=== PATIENT | female | born 1965 | race African-American/Black ===

== ENCOUNTER 2017-02-11 17:36 | Emergency (ER) | payer OTHER ==
[~2017-02-11] VITALS: Ht 172.7 cm; Wt 145.1 kg
[2017-02-11] MEDS ORDERED: LOSARTAN POTASS25 MG ORAL ×2 (17:50→18:05)
[2017-02-11] MEDS ORDERED: PREDNISONE20 MG ORAL (17:50)
[2017-02-11] MEDS ORDERED: VENTOLIN HFA18 GM INH (17:50)
[2017-02-11] MEDS ORDERED: DIPHENHYDRAMINE25 M1 ORAL (18:05)
[2017-02-11] MEDS ORDERED: IBUPROFEN600 MG ORAL (18:05)
[2017-02-11] MEDS ORDERED: OMEPRAZOLE20 M2 ORAL (18:05)
[2017-02-11] MEDS ORDERED: OYSCO 500+D TA1 EAC1 PO (18:05)
[2017-02-11] MEDS ORDERED: FERROUS SULFAT325 MG ORAL (18:05)
[2017-02-11] MEDS ORDERED: TRAMADOL HCL50 MG ORAL (18:05)
[2017-02-11] MEDS ORDERED: GABAPENTIN400 MG ORAL (18:05)
[2017-02-11 18:12] VITALS: BP 143/80
--- NOTE | 2017-02-11 18:16 | Emergency Room Report ---
History of Present Illness General Chief Complaint: Upper Respiratory Illness Source: Patient, Significant Other Present Illness HPI 51 yo F hx of HTN, asthma, p/w 6 days of cough/sob. +dry cough, occurs constantly throughout the day but worse at night. +sob/wheezing, states she has been using her albuterol pump every 4 hours with only mild relief. no fever chills chest pain nvd went to [facility] this past friday, was tx with steroids, nebulizers , and DC'ed from the ED. per patient, she was told her XR was normal. pt has been taking 60mg prednisone daily, took today's dose per asthma, no hx of icu admissions/intubation/bipap no hx of PE/DVT. no recent immobilizations/surgeries. no hormonal pills. Allergies: Coded Allergies: AMOXICILLIN (Verified Allergy, Unknown, 02/11/17) Patient History Past Surgical History: none Pertinent Family History: none Last Menstrual Period: Menopausal Nursing Documentation-PMH Hx Hypertension: Yes Hx Asthma: Yes Review of Systems Respiratory: Reports: cough, shortness of breath, wheezing All Other Systems: negative except mentioned in HPI Physical Exam Vital Signs Date Time Temp Pulse Resp B/P Pulse Ox O2 Delivery O2 Flow Rate FiO2 02/11/17 17:42 98.4 99 18 143/80 95 Room Air Sp02 EP Interpretation: normal General Appearance: normal inspection, well appearing, no apparent distress - appears sob however is speaking in complete sentences, alert, GCS 15, non-toxic Head: normocephalic, atraumatic Eyes: bilateral eye EOMI, bilateral eye PERRL, bilateral eye normal inspection ENT: normal ENT inspection, normal pharynx, normal voice, moist mucus membranes Neck: normal inspection, full range of motion, supple, no bony tend Respiratory: normal inspection, no retraction, respiratory distress - mild, speaking full sentences, wheezing, chest symmetrical Cardiovascular #1: normal inspection, regular rate, rhythm, no edema, normal capillary refill Gastrointestinal: normal inspection, non tender, soft, non-distended, no guarding Musculoskeletal: normal inspection, back normal, normal range of motion, non- tender Neurologic: normal inspection, alert, oriented x3, responsive, air transportation provider III-XII nml as tested, motor strength/tone normal, sensory intact, normal gait, speech normal Medical Decision Making Diagnostic Impression: Primary Impression: Atypical pneumonia Additional Impression: Asthma exacerbation ER Course 51 yo F hx of asthma p/w 6 days of sob/cough ddx: asthma exacerbation / URI / pneumonia not c/w PE given other likely clinical scenarios, no risk factors pt currently wheeziing however speaking in complete sentences -combivent x 3 -already took her prednisone 60mg today - CXR to r/o pneumonia ER course patient s/p 3 combivents, lungs now improved/clear with only slight wheezing. she feels much better. CXR showing possible R sided infiltrate. 500mg levaquin given in ED Discharge -pt to fu with PMD within 5 days -DC home with levaquin, nebulizer -instructed to continue to take her prednisone. -strict return prec given, inc sob/chest pain/to come back to ED Chest X-Ray Diagnostic Results Chest X-Ray Diagnostic Results : Chest X-Ray Ordered: Yes # of Views/Limited/Complete: 2 View Indication: Shortness of Breath EP Interpretation: Yes Interpretation: other - R sided infiltrate Impression: Other - R sided infiltrate concerning for R sided pneumonia Interpreting ER Provider: electronically signed by Kaity Hankins MD Last Vital Signs Date Time Temp Pulse Resp B/P Pulse Ox O2 Delivery O2 Flow Rate FiO2 02/11/17 17:42 98.4 99 18 143/80 95 Room Air Status: improved Disposition: HOME, SELF-CARE Condition: Improved Scripts Compressor, For Nebulizer (Ebase Controller) 1 Each Each 1 EACH , #1 Prov: Kaity Hankins M.D. 02/11/17 Albuterol Sulfate (ALBUTEROL SULFATE) 2.5 Mg/0.5 Ml Vial.neb 2.5 MG IH Q4HR Y for Shortness of Breath, #4 VIAL Prov: Kaity Hankins M.D. 02/11/17 Levofloxacin* (LEVAQUIN*) 750 Mg Tablet 750 MG ORAL DAILY for 5 Days, #5 TAB Prov: Kaity Hankins M.D. 02/11/17 Patient Instructions: Asthma, Adult, Community-Acquired Pneumonia, Adult Kaity Hankins M.D. Feb 11, 2017 18:16
[2017-02-11] MEDS: Ipratropium 0.02% Inh Soln 2.5ml UD HHN SCH ×2 (18:36→19:08)
[2017-02-11] MEDS: Albuterol ud Inhalation HHN SCH ×2 (18:37→19:08)
[2017-02-11] MEDS ORDERED: LEVAQUIN750 MG ORAL (19:01)
[2017-02-11] MEDS ORDERED: ALBUTEROL2.5 MG/0.1 IH (19:12)
[2017-02-11] MEDS ORDERED: [UNRECOGNIZED DRUG - OTHER] MC (19:12)
[2017-02-11] MEDS ORDERED: Levofloxacin 500mg tab ORAL ONE (19:15)
[2017-02-11 19:45] VITALS: BP 147/78
--- NOTE | 2017-02-12 10:41 | Diagnostic Imaging Report ---
Indication: COUGH Technique: 2 views of the chest Comparison: none Findings: Heart size is upper limits normal. Lungs and pleural spaces are clear. The bones are grossly unremarkable Impression: No acute process
== END 2017-02-11 19:45 | disposition home or self-care (01) ==
LOC: EMR 18:15
DX: J18.9 Pneumonia, unspecified organism (principal); J45.901 Unspecified asthma with (acute) exacerbation; I10 Essential (primary) hypertension
CPT/HCPCS: 71020; 94640; 94664; 99284

== ENCOUNTER 2018-09-09 10:23 | Emergency (ER) | payer MEDICARE, OTHER ==
[~2018-09-09] VITALS: Ht 172.7 cm; Wt 145.1 kg
[~2018-09-09 10:23] MED LIST: ALBUTEROL2.5 MG/0.1 IH; DIPHENHYDRAMINE25 M1 ORAL; FERROUS SULFAT325 MG ORAL; GABAPENTIN400 MG ORAL; IBUPROFEN600 MG ORAL; LEVAQUIN750 MG ORAL; LOSARTAN POTASS25 MG ORAL; OMEPRAZOLE20 M2 ORAL; OYSCO 500+D TA1 EAC1 PO; PREDNISONE20 MG ORAL; TRAMADOL HCL50 MG ORAL; VENTOLIN HFA18 GM INH; [UNRECOGNIZED DRUG - OTHER] MC
[2018-09-09 10:29] VITALS: BP 123/73
[2018-09-09] MEDS ORDERED: UNOBMED (10:33)
[2018-09-09 10:53] VITALS: BP 120/65
[2018-09-09] MEDS ORDERED: TAMIFLU75 MG ORAL (10:54)
[2018-09-09] MEDS ORDERED: PROMETHAZINE-C118 M1 ORAL (10:54)
[2018-09-09] MEDS ORDERED: IBUPROFEN600 MG ORAL (10:54)
--- NOTE | 2018-09-09 11:09 | Emergency Room Report ---
History of Present Illness General Chief Complaint: Flu Like Symptoms Source: Patient Present Illness HPI 53-year-old female presents ED for evaluation of sore throat and body aches 4 days. States that she is also losing her voice. Notes cough productive with yellowish phlegm. Pain is dull, 8 out of 10, nonradiating. Denies fevers or chills. Denies chest pain or shortness of breath. Notes history of asthma. States coughing is worse at night. No other aggravating relieving factors. Denies any other associated symptoms Allergies: Coded Allergies: AMOXICILLIN (Verified Allergy, Unknown, 09/09/18) Patient History Past Medical History: HTN, asthma Past Surgical History: none Pertinent Family History: none Social History: Denies: smoking, alcohol use, drug use Last Menstrual Period: 07/24/18 Now: No Immunizations: UTD Reviewed Nursing Documentation: PMH: Agreed; PSxH: Agreed Nursing Documentation-PMH Past Medical History: No History, Except For Hx Hypertension: Yes Hx Asthma: Yes Review of Systems All Other Systems: negative except mentioned in HPI Physical Exam Vital Signs Date Time Temp Pulse Resp B/P (MAP) Pulse Ox O2 Delivery O2 Flow Rate FiO2 09/09/18 10:29 98.2 98 16 123/73 95 Room Air Sp02 EP Interpretation: reviewed, normal General Appearance: no apparent distress, alert, GCS 15, non-toxic, obese Head: normocephalic, atraumatic Eyes: bilateral eye normal inspection, bilateral eye PERRL ENT: hearing grossly normal, normal pharynx, no angioedema, normal voice Neck: full range of motion, supple/symm/no masses Respiratory: chest non-tender, lungs clear, normal breath sounds, speaking full sentences Cardiovascular #1: regular rate, rhythm, no edema Cardiovascular #2: 2+ carotid (R), 2+ carotid (L), 2+ radial (R), 2+ radial (L) , 2+ dorsalis pedis (R), 2+ dorsalis pedis (L) Gastrointestinal: normal bowel sounds, non tender, soft, non-distended, no guarding, no rebound Rectal: deferred Genitourinary: normal inspection, no CVA tenderness Musculoskeletal: back normal, gait/station normal, normal range of motion, non- tender Neurologic: alert, oriented x3, responsive, motor strength/tone normal, sensory intact, speech normal Psychiatric: judgement/insight normal, memory normal, mood/affect normal, no suicidal/homicidal ideation Reflexes: 3+ bicep (R), 3+ bicep (L), 3+ tricep (R), 3+ tricep (L), 3+ knee (R) , 3+ knee (L) Skin: normal color, no rash, warm/dry, well hydrated Lymphatic: no adenopathy Medical Decision Making Diagnostic Impression: Primary Impression: Influenza-like symptoms ER Course Hospital Course 53-year-old F presents to ED complaining of bodyaches + cough + sorethroat Differential diagnoses include: URI, pharyngitis, otitis media, influenza Clinical course Patient placed on stretcher. After initial history physical exam reveals an obese female in no acute distress. Bilateral TM unremarkable, no pharyngeal erythema. Lungs clear. No CVA tenderness. No lympahdenopathy Discussed findings with patient. Consideration for influenza. We'll treat with Tamiflu. Safe for discharge close outpatient follow-up. We'll provide referrals Diagnosis - influenza-like symptoms Stable and discharged home with prescriptions for tamiflu, motrin, promethazine/ codeine. drink plenty of fluids. Instructed to followup with PMD. Return to ED if symptoms recur or worsen Last Vital Signs Date Time Temp Pulse Resp B/P (MAP) Pulse Ox O2 Delivery O2 Flow Rate FiO2 09/09/18 10:53 98.0 86 18 120/65 96 Room Air Status: improved Disposition: HOME, SELF-CARE Condition: Stable Scripts Codeine/Promethazine Hcl* (PROMETHAZINE-CODEINE SYRUP*) 118 Ml Syrup 5 ML ORAL Q6H PRN for For Cough, #118 ML 0 Refills Prov: Kanu Crowder MD 09/09/18 Ibuprofen* (MOTRIN*) 600 Mg Tablet 600 MG ORAL Q8H PRN for For Pain, #30 TAB 0 Refills Prov: Kanu Crowder MD 09/09/18 Oseltamivir Phosphate (Tamiflu) 75 Mg Capsule 75 MG ORAL TWICE A DAY for 5 Days, CAP Prov: Kanu Crowder MD 09/09/18 Referrals: [facility] Andrea Pereyra [facility]. [facility] Patient Instructions: Influenza, Adult, [id number] Kanu Crowder MD Sep 09, 2018 11:09
== END 2018-09-09 11:15 | disposition home or self-care (01) ==
LOC: EMR 11:10
DX: J11.1 Influenza due to unidentified influenza virus with other respiratory manifestations (principal); I10 Essential (primary) hypertension; J45.909 Unspecified asthma, uncomplicated; Z88.0 Allergy status to penicillin
CPT/HCPCS: 99282

== ENCOUNTER 2019-06-03 09:54 | Emergency (ER) | payer MEDICARE ==
[~2019-06-03] VITALS: Ht 172.7 cm; Wt 145.1 kg
[~2019-06-03 09:54] MED LIST changes: +PROMETHAZINE-C118 M1 ORAL; +TAMIFLU75 MG ORAL; +UNOBMED
[2019-06-03 10:02] VITALS: BP 121/76
--- NOTE | 2019-06-03 10:12 | NUR ---
ED Nurse Note: PT WALKED IN DUE TO LEFT NECK AND LEFT SHOULDER PAIN AFTER TRIPPING AND FALLING INTO A CURB LAST NIGHT. AAO X4, AMBULATORY, AND PAINFUL TO MOVE AROUND. NO OBVIOUS SIGNS OF DEFORMITY.
[2019-06-03] MEDS ORDERED: HYDROcodone/Acetamin 5/325 tab ORAL ONE (10:15)
[2019-06-03] MEDS ORDERED: Methocarbamol 750mg tab ORAL ONE (10:15)
--- NOTE | 2019-06-03 10:18 | Emergency Room Report ---
History of Present Illness General Chief Complaint: Upper Extremity Injury Source: Patient Present Illness HPI Disclaimer: Please note that this report is being documented using DRAGON technology. This can lead to erroneous entry secondary to incorrect interpretation by the dictating instrument. HPI: 53-year-old [id number] female presents for evaluation of left shoulder and arm pain after a fall. Yesterday she tripped over a concrete divider in a parking lot falling onto her left shoulder without a head injury or loss of consciousness. She was helped up by bystanders. Noted some pain that is steadily worsened over the past 12 hours. Notes an aching over the entire shoulder and difficulty abducting. Has full range of motion in the elbow and hand. Denies any change in sensation, numbness, weakness. Denies any cuts or scrapes. Pain is over the trapezius and going over the deltoid down the left arm. No radiating pain from the back. Denies neck pain. PMH: Hypertension, obesity PSH: Denies Allergies: Amoxicillin Social Hx: Denies Allergies: Coded Allergies: AMOXICILLIN (Verified Allergy, Unknown, 09/09/18) Patient History Last Menstrual Period: na Nursing Documentation-PMH Past Medical History: No History, Except For Hx Hypertension: Yes Hx Asthma: Yes - pneumonia Review of Systems All Other Systems: negative except mentioned in HPI Physical Exam Vital Signs Date Time Temp Pulse Resp B/P (MAP) Pulse Ox O2 Delivery O2 Flow Rate FiO2 06/03/19 10:02 98.1 98 18 121/76 (91) 98 Room Air General: Awake and alert, no acute distress HEENT: NC/AT. EOMI. Resp: Normal work of breathing Skin: Intact. No abrasions, laceration or rash over the exposed skin MSK: Normal tone and bulk. Moving all extremities. No obvious deformity. There is tenderness palpation over the lateral aspect of the left shoulder without obvious deformity. Able to abduct to approximate 45 degrees actively and pain is elicited with active and passive range of motion testing past 45 degrees. Full flexion extension at the elbow as well as pronation and supination. Hand and wrist have full range of motion and strength is 5/5. Sensation intact over the deltoid. Tenderness to palpation over the trapezius and supraspinatus region. No midline tenderness in the cervical, thoracic or lumbosacral spine. No step-offs or deformities. Neuro: Awake and alert. Mentating appropriately Medical Decision Making Diagnostic Impression: Primary Impression: Trapezius muscle spasm Additional Impressions: Muscle strain Shoulder contusion ER Course 53-year-old female presents for evaluation of left shoulder pain after a fall yesterday. Will obtain x-rays to rule out occult fracture or dislocation. Overall it appears she is having significant spasms over the trapezius from her injury. Will treat with Robaxin, pain medication and lidocaine patch. Other X-Ray Diagnostic Results Other X-Ray Diagnostic Results #1: X-Ray ordered: Left shoulder # of Views/Limited Vs Complete: Complete Indication: Pain EP Interpretation: Yes Interpretation: no dislocation, no soft tissue swelling, no fractures Impression: No acute disease Electronically Signed by: Electronically signed by Dr. Santana Akhtar Other X-Ray Diagnostic Results #2: X-Ray ordered: Left humerus # of Views/Limited Vs Complete: 2 View Indication: Pain EP Interpretation: Yes Interpretation: no soft tissue swelling, no fractures Impression: No acute disease Electronically Signed by: Electronically signed by Dr. Santana Akhtar Reevaluation Time: 11:31 Last Vital Signs Date Time Temp Pulse Resp B/P (MAP) Pulse Ox O2 Delivery O2 Flow Rate FiO2 06/03/19 10:02 98.1 98 18 121/76 98 Room Air Reevaluation Impression No evidence of fracture or dislocation. Likely a contusion and muscle spasm. Will be discharged with NSAIDs, lidocaine patches and Robaxin. Patient placed in a sling for comfort. She will follow-up with orthopedic urgent care or her PMD for further treatment as needed. Discussed reasons to return to the emergency department. She understands and agrees with this treatment plan. Disposition: HOME, SELF-CARE Condition: Stable Scripts Lidocaine Patch* (Lidoderm Patch*) 1 Each Adh..patch 1 PATCH TOPIC DAILY, #7 PATCH 0 Refills Patch(es) may remain in place for up to 12 hours in any 24-hour period. Prov: Santana Akhtar MD 06/03/19 Methocarbamol* (ROBAXIN-750*) 750 Mg Tablet 750 MG PO TID, #21 TAB 0 Refills Prov: Santana Akhtar MD 06/03/19 Acetaminophen* (ACETAMINOPHEN 325MG TABLET*) 325 Mg Tablet 650 MG ORAL Q6H PRN for For Pain for 5 Days, #30 TAB Prov: Santana Akhtar MD 06/03/19 Ibuprofen* (MOTRIN*) 600 Mg Tablet 600 MG ORAL QID for For Pain, #30 TAB 0 Refills Prov: Santana Akhtar MD 06/03/19 Referrals: NON PHYSICIAN (PCP) Santana Akhtar MD Jun 03, 2019 10:18
--- NOTE | 2019-06-03 10:40 | NUR ---
ED Nurse Note: PT TAKEN TO XRAY VIA WHEELCHAIR AND STABLE.
--- NOTE | 2019-06-03 10:50 | NUR ---
ED Nurse Note: PT CAME BACK FROM XRAY AND STABLE.
[2019-06-03] MEDS ORDERED: IBUPROFEN600 MG ORAL (10:58)
[2019-06-03] MEDS ORDERED: LIDODERM700 M1 TOPIC (10:58)
[2019-06-03] MEDS ORDERED: ACETAMINOPHEN325 M1 ORAL (10:58)
[2019-06-03] MEDS ORDERED: ROBAXIN-750750 MG PO (10:58)
--- NOTE | 2019-06-03 11:26 | Diagnostic Imaging Report ---
EXAM: XR Left Shoulder Complete, 2 or More Views CLINICAL HISTORY: INJ TECHNIQUE: Two or more views of the left shoulder. COMPARISON: None FINDINGS: Bones/joints: No displaced fracture or dislocation identified. Osteopenia. Degenerative changes of the left acromioclavicular joint and glenohumeral joint. Mild calcific tendinosis. Soft tissues: Generalized soft tissue prominence. IMPRESSION: 1. No displaced fracture or dislocation identified. 2. Mild calcific tendinosis.
--- NOTE | 2019-06-03 11:27 | Diagnostic Imaging Report ---
EXAM: XR Left Humerus, 2 or More Views CLINICAL HISTORY: INJ TECHNIQUE: Frontal and lateral views of the left humerus. COMPARISON: None FINDINGS: Bones/joints: No displaced fracture or dislocation identified. Osteopenia. Degenerative changes of the left acromioclavicular joint. Soft tissues: Generalized soft tissue prominence. IMPRESSION: No displaced fracture or dislocation identified.
[2019-06-03 11:30] VITALS: BP 126/72
--- NOTE | 2019-06-03 11:30 | NUR ---
ER DISCHARGE NOTE: Patient is cleared to be discharged per ERMD, pt is aox4, on room air, with stable vital signs. pt was given dc and prescription instructions, pt was able to verbalize understanding, pt id band removed without complications. pt is able to ambulate with steady gait. pt took all belongings.
== END 2019-06-03 11:30 | disposition home or self-care (01) ==
LOC: EMR 10:13
DX: S40.012A Contusion of left shoulder, initial encounter (principal); S46.912A Strain of unspecified muscle, fascia and tendon at shoulder and upper arm level, left arm, initial encounter; M62.838 Other muscle spasm; W01.0XXA Fall on same level from slipping, tripping and stumbling without subsequent striking against object, initial encounter; Y93.01 Activity, walking, marching and hiking; Y92.481 Parking lot as the place of occurrence of the external cause; I10 Essential (primary) hypertension; J45.909 Unspecified asthma, uncomplicated; Z88.1 Allergy status to other antibiotic agents
CPT/HCPCS: 99284

== ENCOUNTER 2020-07-04 09:34 | Emergency (ER) | payer MEDICARE ==
[~2020-07-04] VITALS: Ht 172.7 cm; Wt 136.1 kg
[~2020-07-04 09:34] MED LIST changes: +ACETAMINOPHEN325 M1 ORAL; +LIDODERM700 M1 TOPIC; +ROBAXIN-750750 MG PO
--- NOTE | 2020-07-04 09:41 | NUR ---
ED Nurse Note: Pt ambulated c/o SOB, bodyachs, cough since 06/27/2020 never been tested for COVID. hr 105, other vss, nad noted, ambulatory, a/ox4, complaints of 8/10 chest pain and back pain. 95% o2 on room air.
[2020-07-04 09:43] VITALS: BP 135/68
--- NOTE | 2020-07-04 10:13 | NUR ---
ED Nurse Note: blood collected and sent to lab. covid rapid test sent to lab.
--- NOTE | 2020-07-04 10:23 | Emergency Room Report ---
History of Present Illness General Chief Complaint: General Complaint Source: Patient Present Illness HPI 55-year-old female presents for cough, shortness of breath x1 week. Denies chest pain. Denies fevers or chills. History of asthma. Previous history of pneumonia. Denies sick contacts or recent travel. No other aggravating relieving factors. Denies any other associated symptoms Allergies: Coded Allergies: AMOXICILLIN (Verified Allergy, Unknown, 09/09/18) COVID-19 Screening Contact w/high risk pt: No Experienced COVID-19 symptoms?: Yes COVID-19 Testing performed MANAGER CARGO: No Patient History Past Medical History: HTN, pneumonia Past Surgical History: none Pertinent Family History: none Social History: Denies: smoking, alcohol use, drug use Now: No Immunizations: UTD Reviewed Nursing Documentation: PMH: Agreed; PSxH: Agreed Nursing Documentation-PMH Past Medical History: No History, Except For Hx Hypertension: Yes Hx Asthma: Yes - pneumonia Review of Systems All Other Systems: negative except mentioned in HPI Physical Exam Vital Signs Date Time Temp Pulse Resp B/P (MAP) Pulse Ox O2 Delivery O2 Flow Rate FiO2 07/04/20 09:36 97.7 104 17 135/68 (90) 95 Room Air Sp02 EP Interpretation: reviewed, normal General Appearance: no apparent distress, alert, GCS 15, non-toxic, obese Head: normocephalic, atraumatic Eyes: bilateral eye normal inspection, bilateral eye PERRL ENT: hearing grossly normal, normal pharynx, no angioedema, normal voice Neck: full range of motion, supple/symm/no masses Respiratory: chest non-tender, lungs clear, normal breath sounds, speaking full sentences, wheezing Cardiovascular #1: regular rate, rhythm, no edema Cardiovascular #2: 2+ carotid (R), 2+ carotid (L), 2+ radial (R), 2+ radial (L), 2+ dorsalis pedis (R), 2+ dorsalis pedis (L) Gastrointestinal: normal bowel sounds, non tender, soft, non-distended, no guarding, no rebound Rectal: deferred Genitourinary: normal inspection, no CVA tenderness Musculoskeletal: back normal, normal range of motion, gait/station normal, non- tender Neurologic: alert, motor strength/tone normal, oriented x3, sensory intact, responsive, speech normal Psychiatric: judgement/insight normal, memory normal, mood/affect normal, no suicidal/homicidal ideation Reflexes: 3+ bicep (R), 3+ bicep (L), 3+ tricep (R), 3+ tricep (L), 3+ knee (R), 3+ knee (L) Skin: no rash Lymphatic: no adenopathy Medical Decision Making Diagnostic Impression: Primary Impression: COVID-19 ER Course Hospital Course 55-year-old female presents with cough, shortness of breath Differential diagnoses include: URI, bronchitis, asthma/COPD, pneumonia Clinical course Patient placed on stretcher. Isolation. I wore full PPE. Labs reviewed-no leukocytosis, hemoglobin/hematocrit stable, electrolytes okay, trop negative Chest x-ray shows patchy opacities EKG - NSR no acute ischemic changes interpreted by me Covid positive. Given breathing treatments I discussed findings with patient. Not hypoxic. Not tachypneic. Patient is a candidate for Bamlanivimab. Patient declined this medication after discussion. Will discharge home with antibiotics and other medications. Patient states she has been checking her oxygen at home and states her oxygen levels have been normal. States she will follow-up with her PMD Diagnosis - [id number] Stable and discharged home. Instructed to followup with PMD. Return to ED if symptoms recur or worsen Laboratory Tests Test 07/04/20 10:10 07/04/20 10:43 07/04/20 11:16 Urine Color Pale yellow Urine Appearance Slightly cloudy Urine pH 6.5 (4.5-8.0) Urine Specific [place] 1.015 (1.005-1.035) Urine Protein 1+ (NEGATIVE) H Urine Glucose (UA) Negative (NEGATIVE) Urine Ketones Negative (NEGATIVE) Urine Blood 2+ (NEGATIVE) H Urine Nitrite Negative (NEGATIVE) Urine Bilirubin Negative (NEGATIVE) Urine Urobilinogen Normal MG/DL (0.0-1.0) Urine Leukocyte Esterase 1+ (NEGATIVE) H Urine RBC 2-4 /HPF (0 - 2) H Urine WBC 10-15 /HPF (0 - 2) H Urine Squamous Epithelial Cells Few /LPF (NONE/OCC) Urine Bacteria Few /HPF (NONE) Troponin I 0.032 ng/mL (0.000-0.056) White Blood Count 6.0 K/UL (4.8-10.8) Red Blood Count 3.81 M/UL (4.20-5.40) L Hemoglobin 11.3 G/DL (12.0-16.0) L Hematocrit 34.2 % (37.0-47.0) L Mean Corpuscular Volume 90 FL (80-99) Mean Corpuscular Hemoglobin 29.7 PG (27.0-31.0) Mean Corpuscular Hemoglobin Concent 33.1 G/DL (32.0-36.0) Red Cell Distribution Width 15.7 % (11.6-14.8) H Platelet Count 282 K/UL (150-450) Mean Platelet Volume 6.6 FL (6.5-10.1) Neutrophils (%) (Auto) 67.7 % (45.0-75.0) Lymphocytes (%) (Auto) 22.9 % (20.0-45.0) Monocytes (%) (Auto) 7.8 % (1.0-10.0) Eosinophils (%) (Auto) 0.8 % (0.0-3.0) Basophils (%) (Auto) 1.0 % (0.0-2.0) Sodium Level 137 MMOL/L (136-145) Potassium Level 3.6 MMOL/L (3.5-5.1) Chloride Level 104 MMOL/L (98-107) Carbon Dioxide Level 30 MMOL/L (21-32) Anion Gap 3 mmol/L (5-15) L Blood Urea Nitrogen 5 mg/dL (7-18) L Creatinine 0.5 MG/DL (0.55-1.30) L Estimat Glomerular Filtration Rate > 60 mL/min (>60) Glucose Level 100 MG/DL (74-106) Calcium Level 8.3 MG/DL (8.5-10.1) L Total Bilirubin 0.4 MG/DL (0.2-1.0) Aspartate Amino Transf (AST/SGOT) 25 U/L (15-37) Alanine Aminotransferase (ALT/SGPT) 37 U/L (12-78) Alkaline Phosphatase 70 U/L (46-116) Pro-B-Type Natriuretic Peptide 18 pg/mL (0-125) Total Protein 7.5 G/DL (6.4-8.2) Albumin 3.1 G/DL (3.4-5.0) L Globulin 4.4 g/dL Albumin/Globulin Ratio 0.7 (1.0-2.7) L EKG Diagnostic Results Troponin ordered: Yes Rate: normal Rhythm: NSR ST Segments: no acute changes ASA given to the pt in ED: No Rhythm Strip Diag. Results EP Interpretation: yes Rhythm: NSR, no PVC's, no ectopy Chest X-Ray Diagnostic Results Chest X-Ray Diagnostic Results : Chest X-Ray Ordered: Yes # of Views/Limited/Complete: 1 View Indication: Shortness of Breath EP Interpretation: Yes Last Vital Signs Date Time Temp Pulse Resp B/P (MAP) Pulse Ox O2 Delivery O2 Flow Rate FiO2 07/04/20 09:43 97.7 102 17 135/68 95 Room Air Status: improved Disposition: HOME, SELF-CARE Condition: Stable Scripts Azithromycin* (ZITHROMAX*) 250 Mg Tablet 250 MG ORAL DAILY, #6 TAB 0 Refills Take two tables once daily for 1 day, then one tablet once daily for 4 days. Prov: Kanu Crowder MD 07/04/20 Albuterol Sulfate (ALBUTEROL SULFATE) 2.5 Mg/0.5 Ml Vial.neb 2.5 MG IH Q4HR PRN for Shortness of Breath, #4 VIAL Prov: Kanu Crowder MD 07/04/20 Albuterol Sulfate (VENTOLIN HFA) 18 Gm Hfa.aer.ad 2 PUFFS INH EVERY 6 HOURS, #18 GM 0 Refills Prov: Kanu Crowder MD 07/04/20 Prednisone* (PREDNISONE*) 20 Mg Tablet 60 MG ORAL DAILY for 5 Days, #10 TAB Prov: Kanu Crowder MD 07/04/20 Kanu Crowder MD Jul 04, 2020 10:23
[2020-07-04 10:35] LABS: APPEARANCE,URINE SLIGHTLY CLOUDY; BILIRUBIN, URINE NEGATIVE (NEGATIVE); COLOR,URINE PALE YELLOW; GLUCOSE, URINE (UA) NEGATIVE (NEGATIVE); KETONES,URINE NEGATIVE (NEGATIVE); LEUKOCYTE ESTERASE ,URINE 1+ (NEGATIVE); NITRITE,URINE NEGATIVE (NEGATIVE); PH,URINE 6.5 (4.5-8.0); PROTEIN,URINE 1+ (NEGATIVE); UROBILINOGEN,URINE NORMAL MG/DL (0.0-1.0)
[2020-07-04] MEDS ORDERED: Albuterol/Ipratropium 3ml neb HHN ONE (11:00)
--- NOTE | 2020-07-04 11:03 | Diagnostic Imaging Report ---
Indication: Cough Technique: XRAY Chest 1v Comparison: Chest radiograph 02/11/2017 Findings: Limited evaluation due to underpenetration which is likely in part related to body habitus. Lung volumes are also low. Heart size and mediastinal contours are stable. There is suggestion of patchy infiltrates bilaterally. No pleural effusion or pneumothorax. No acute osseous body. Impression: Limited evaluation as above. Suggestion of patchy bilateral infiltrates concerning for multifocal pneumonia given history of cough. Findings may possibly artifactually exaggerated given above described limitations.
[2020-07-04 11:08] LABS: EOSINOPHILS % (AUTO) 0.8 % (0.0-3.0); HEMATOCRIT 34.2 % (37.0-47.0); HEMOGLOBIN 11.3 G/DL (12.0-16.0); LYMPHOCYTES % (AUTO) 22.9 % (20.0-45.0); MEAN CORPUSCULAR VOLUME 90 FL (80-99); MONOCYTES % (AUTO) 7.8 % (1.0-10.0); NEUTROPHILS % (AUTO) 67.7 % (45.0-75.0); PLATELET COUNT 282 K/UL (150-450); RED BLOOD COUNT 3.81 M/UL (4.20-5.40); RED CELL DISTRIBUTION WIDTH 15.7 % (11.6-14.8)
[2020-07-04] MEDS ORDERED: Bamlanivimab Fact Sheet MISC ONE (11:15)
[2020-07-04] MEDS ORDERED: Bamlanivimab 700 MG in NS 275 ML IVPB SCH (11:15)
--- NOTE | 2020-07-04 11:23 | NUR ---
ED Nurse Note: patient refused to take bamlanivimab medication. notified Dr. Crowder.
[2020-07-04] MEDS ORDERED: Azithromycin 500 MG in NS 275 ML IV ONE (11:30)
[2020-07-04 11:38] VITALS: BP 135/68
--- NOTE | 2020-07-04 11:44 | NUR ---
ED Nurse Note: Pt cleared by health care Provider for discharge. DC instructions/prescription was given and explained to pt and verbalized understanding of teachings. All medical deviecs such as ID band and iv removed. Pt is AAO x4, ambulatory and left with all personal belongings.
[2020-07-04] MEDS ORDERED: ZITHROMAX250 MG ORAL (11:50)
[2020-07-04] MEDS ORDERED: ALBUTEROL2.5 MG/0.1 IH (11:50)
[2020-07-04] MEDS ORDERED: PREDNISONE20 MG ORAL (11:50)
[2020-07-04] MEDS ORDERED: VENTOLIN HFA18 GM INH (11:50)
[2020-07-04 12:12] LABS: ANION GAP 3 mmol/L (5-15); BLOOD UREA NITROGEN 5 mg/dL (7-18); CALCIUM 8.3 MG/DL (8.5-10.1); CARBON DIOXIDE 30 MMOL/L (21-32); CHLORIDE 104 MMOL/L (98-107); CREATININE 0.5 MG/DL (0.55-1.30); POTASSIUM 3.6 MMOL/L (3.5-5.1); SODIUM 137 MMOL/L (136-145)
[2020-07-04 12:23] LABS: ALBUMIN 3.1 G/DL (3.4-5.0); ALBUMIN/GLOBULIN RATIO 0.7 (1.0-2.7); ALKALINE PHOSPHATASE 70 U/L (46-116); ASPARTATE AMINO TRANSFERASE 25 U/L (15-37); BILIRUBIN,TOTAL 0.4 MG/DL (0.2-1.0)
[2020-07-04 12:40] LABS: ALANINE AMINOTRANSFERASE 37 U/L (12-78)
== END 2020-07-04 11:45 | disposition home or self-care (01) ==
LOC: EMR 10:14
DX: U07.1 COVID-19 (principal); I10 Essential (primary) hypertension; J45.909 Unspecified asthma, uncomplicated; Z79.899 Other long term (current) drug therapy; Z88.1 Allergy status to other antibiotic agents
CPT/HCPCS: 36415; 71045; 80053; 81003; 83880; 84484; 85025; 87086; 87181; 93005; 96374; 99284; U0002; J7620